=== PATIENT | female | born 1995 | race Caucasian/White ===

== ENCOUNTER → 2017-10-02 13:27 | Observation (INO) ==
[2017-10-02 12:01] LABS: Basophils % 0.3 %; Eosinophils # 0.1 K/mcL (0.0-0.6); Eosinophils % 0.8 %; Hematocrit 32.7 % (35.3-44.9); Hemoglobin 11.1 g/dL (11.5-15.4); Immature Granulocytes % 1.2 % (0-4); Lymphocytes # 1.5 K/mcL (0.6-4.6); Lymphocytes % 13.7 %; Mean Corpuscular HGB Conc 33.9 g/dL (31.6-35.5); Mean Corpuscular Hemoglobin 31.7 pg (28.0-33.3); Mean Corpuscular Volume 93.4 fL (83.0-100.0); Monocytes # 0.6 K/mcL (0.0-1.3); Monocytes % 5.7 %; Neutrophils # 8.3 K/mcL (1.6-8.9); Platelet Count 234 K/mcL (140-400); Red Cell Distribution Width 12.6 % (11.5-14.5); Segmented Neutrophils % 78.3 %
[2017-10-02 12:13] LABS: Alanine Aminotransferase 12 Units/L (0-55); Aspartate Amino Transferase 16 Units/L (5-34); BUN/Creatinine Ratio 8 (6-26); Blood Urea Nitrogen 6 mg/dL (7-20); Carbon Dioxide 21 mEq/L (19-29); Chloride 106 mEq/L (98-109); Lactate Dehydrogenase 166 Units/L (159-327); Potassium 3.7 mEq/L (3.5-4.5); Sodium 136 mEq/L (136-145); Uric Acid 5.1 mg/dL (2.6-6.0); eGFR For African Americans > 60 (> 60); eGFR For Non-African Americans > 60 (> 60)
[2017-10-02 12:39] LABS: Bilirubin,Urine Negative (Negative); Blood,Urine Trace (Negative); Clarity,Urine Cloudy (Clear); Color,Urine Yellow (Yellow); Glucose,Urine (UA) Normal (Normal); Ketones,Urine Negative (Negative); Leukocyte Esterase,Urine Trace (Negative); Nitrite,Urine Negative (Negative); PH,Urine 6.5 pH Units (5.0-8.0); Protein,Urine Negative (Neg-Trace); Specific Gravity,Urine 1.011 (1.010-1.025); Urobilinogen,Urine Normal (Normal)
[2017-10-02 12:42] LABS: Bacteria,Urine Few per hpf (None-Few); Hyaline Casts,Urine None Seen per lpf (None-Few); Squamous Epithelial Cell,Urine Many per lpf (None-Few)
[2017-10-02 13:03] LABS: RBC,Urine 0-3 per hpf (0-3)
--- NOTE | 2017-10-02 13:17 | Discharge Summary ---
Date of Encounter: 10/02/17 Time of Encounter: 13:16 - Discharge Diagnosis (1) 31 weeks gestation of Priority: Primary Status: Acute Comments: admitted for observation (2) Postural dizziness with near syncope Priority: Secondary Status: Acute Comments: Lab work WNL BPs and vital signs WNL Patient to follow up with Dr. Underwood as scheduled. (3) NST (non-stress test) reactive on surveillance Priority: Secondary Status: Acute Comments: baseline 135 bpm moderate variability +15x15 accels no decels noted. - Discharge Medications Home Medications: Multivitamin [Flintstones] 2 each PO DAILY 10/02/17 [History] Allergies/Adverse Reactions: 3 Allergy/AdvReac Type Severity Reaction Status Date / Time No Known Allergies Allergy Verified 05/30/17 13:42 Data Procedures and tests throughout hospitalization: Laboratory Tests 10/02/17 10/02/17 10/02/17 11:00 11:00 12:23 WBC 10.6 RBC 3.50 L Hgb 11.1 L Hct 32.7 L MCV 93.4 MCH 31.7 MCHC 33.9 RDW 12.6 Plt Count 234 MPV 10.0 Immature Gran % 1.2 Seg Neutrophils % 78.3 Lymphocytes % 13.7 Monocytes % 5.7 Eosinophils % 0.8 Basophils % 0.3 Neutrophils # 8.3 Lymphocytes # 1.5 Monocytes # 0.6 Eosinophils # 0.1 Basophils # 0.0 Sodium 136 Potassium 3.7 Chloride 106 Carbon Dioxide 21 BUN 6 L Creatinine 0.75 Est GFR ( Amer) > 60 Est GFR (Non-Af Amer) > 60 BUN/Creatinine Ratio 8 Uric Acid 5.1 AST 16 ALT 12 Lactate Dehydrogenase 166 Urine Color Yellow Urine Clarity Cloudy A Urine pH 6.5 Ur Specific [place] 1.011 Urine Protein Negative Urine Glucose (UA) Normal Urine Ketones Negative Urine Blood Trace H Urine Nitrite Negative Urine Bilirubin Negative Urine Urobilinogen Normal Ur Leukocyte Esterase Trace H Urine Microscopic RBC 0-3 Urine Microscopic WBC 5-15 H Ur Squamous Epith Cells Many H Urine Bacteria Few Hyaline Casts None Seen Ur Culture Indicated? YES A Labs on day of discharge: Labs from last 24 hours 10/02/17 10/02/17 10/02/17 12:23 11:00 11:00 WBC 10.6 RBC 3.50 L Hgb 11.1 L Hct 32.7 L MCV 93.4 MCH 31.7 MCHC 33.9 RDW 12.6 Plt Count 234 MPV 10.0 Immature Gran % 1.2 Seg Neutrophils % 78.3 Lymphocytes % 13.7 Monocytes % 5.7 Eosinophils % 0.8 Basophils % 0.3 Neutrophils # 8.3 Lymphocytes # 1.5 Monocytes # 0.6 Eosinophils # 0.1 Basophils # 0.0 Sodium 136 Potassium 3.7 Chloride 106 Carbon Dioxide 21 BUN 6 L Creatinine 0.75 Est GFR ( Amer) > 60 Est GFR (Non-Af Amer) > 60 BUN/Creatinine Ratio 8 Uric Acid 5.1 AST 16 ALT 12 Lactate Dehydrogenase 166 Urine Color Yellow Urine Clarity Cloudy A Urine pH 6.5 Ur Specific [place] 1.011 Urine Protein Negative Urine Glucose (UA) Normal Urine Ketones Negative Urine Blood Trace H Urine Nitrite Negative Urine Bilirubin Negative Urine Urobilinogen Normal Ur Leukocyte Esterase Trace H Urine Microscopic RBC 0-3 Urine Microscopic WBC 5-15 H Ur Squamous Epith Cells Many H Urine Bacteria Few Hyaline Casts None Seen Ur Culture Indicated? YES A Date of admission: 10/02/17 11:16 Primary care physician: PCP NONE Discharging clinician: Nany Hilliard Anticipated date of discharge: 10/02/17 - Patient Status Disposition: Home, Self-Care Condition: Good - Discharge Instructions Follow Up With: NONE,PCP [Primary Care Provider] - Erika Underwood DO [Partnered Physician] - Forms: Inpatient Work/School Release - Diet and Activity Activity: increase activity as tolerated Diet: regular diet Hospital Course [employer] Hospital course: Patient is a 21 y/o at 31 weeks gestation presents to unit for observation following a near syncopal episode while working. Patient denies decreased movement, LOF or VB. Patient Time Attestation: Total time spent providing and/or coordinating discharge services: Time Spent: Less than 30 minutes Exam - Constitutional General appearance IM: A&O X 3, pleasant, answers questions appropriately - Respiratory Respiratory exam: Present: CTAB - Cardiovascular Cardiovascular exam IM: Present: RRR, +S1, +S2 - GI/Abdominal GI/Abdominal exam IM: normal bowel sounds - Neurological Exam Neurological exam: alert, oriented X3, reflexes normal - Other Additional findings: FHR 135 bpm moderate variability +15x15 accels no decels noted. CAt. 1 tracing. - VTE Reasons for not Prescribing Prophylaxis: Treatment not Indicated - Low risk for VTE
[2017-10-02 13:34] LABS: Protein/Creatinine Ratio,Urine 0.14 mg/mg (0-0.20)
== END | disposition home or self-care (01) ==
LOC: 1NENULAB
PROVIDERS: ADMIT Obstetrics & Gynecology; ATTEND Obstetrics & Gynecology

== ENCOUNTER → 2017-10-31 09:50 | Observation (INO) ==
[2017-10-31 06:21] VITALS: BP 136/81
[2017-10-31 06:38] LABS: Bilirubin,Urine Negative (Negative); Blood,Urine Negative (Negative); Clarity,Urine Cloudy (Clear); Color,Urine Yellow (Yellow); Glucose,Urine (UA) Normal (Normal); Ketones,Urine Negative (Negative); Leukocyte Esterase,Urine Moderate (Negative); Nitrite,Urine Negative (Negative); Protein,Urine Negative (Neg-Trace); Specific Gravity,Urine 1.015 (1.010-1.025); Urobilinogen,Urine Normal (Normal)
[2017-10-31 06:40] LABS: Bacteria,Urine Many per hpf (None-Few); Hyaline Casts,Urine Few per lpf (None-Few); Squamous Epithelial Cell,Urine Many per lpf (None-Few); WBC,Urine 50-100 per hpf (0-3)
[2017-10-31 06:45] LABS: Amphetamine Screen,Urine Negative ng/mL (Cutoff=1000); Barbiturate Screen,Urine Negative ng/mL (Cutoff=200); Benzodiazepines Screen,Urine Negative ng/mL (Cutoff=200); Cannabinoid Screen,Urine Negative ng/mL (Cutoff = 50); Cocaine Screen,Urine Negative ng/mL (Cutoff= 300); Opiate Screen,Urine Negative ng/mL (Cutoff=300); Phencyclidine Screen,Urine Negative ng/mL (Cutoff=25)
[2017-10-31 06:53] LABS: RBC,Urine 0-3 per hpf (0-3)
--- NOTE | 2017-10-31 09:38 | OB/GYN Progress Note ---
Date of Encounter: 10/31/17 Time of Encounter: 09:37 - Assessment and Plan (1) 35 weeks gestation of Current Visit: Yes Status: Acute Care of Dr. Underwood (2) contractions Current Visit: Yes Status: Acute No cervical change on serial exams, pain relief obtained with administration of Nubain around 6 AM. Will discharge home with labor, and went to return to triage precautions. Patient and verbalized understanding (3) NST (non-stress test) reactive on surveillance Current Visit: No Status: Acute baseline 135 Subjective - Subjective Interval history: Presents to triage with complaint of abdominal pain and cramping around 10pm, but increased around 2am. Pt reports good movement, denies, contractions, vaginal bleeding or leaking of fluid. Antepartum ROS: movement normal, contractions, no loss of fluid, no vaginal bleeding Objective - Vital Signs Vital Signs: Vital Signs Resp BP 10/31/17 06:13 16 136/81 Intake and Output 10/30/17 10/31/17 10/31/17 23:59 07:59 15:59 Other: Weight 99.2 kg Patient Weight 10/31/17 23:59 Weight 99.2 kg - Exam FHR: auscultation normal FHR comments: Baseline 135 Abdomen: Present: normal appearance, soft, gravid Cervical dilation: Closed on serial exams per RN - Labs Labs: Abnormal lab results Urine Clarity Cloudy (Clear) A 10/31/17 06:25 Ur Leukocyte Esterase Moderate (Negative) H 10/31/17 06:25 Urine Microscopic WBC 50-100 per hpf (0-3) H 10/31/17 06:25 Ur Squamous Epith Cells Many per lpf (None-Few) H 10/31/17 06:25 Urine Bacteria Many per hpf (None-Few) H 10/31/17 06:25
[~2017-10-31 09:50] MED LIST: *HR* Nalbuphine 20 MG/ML AMPUL IVP PRN; Ringers Solution, Lactated 1,000 ML IVC SCH; Ringers Solution, Lactated 1,000 ML ONE
== END | disposition home or self-care (01) ==
LOC: 1NENULAB
PROVIDERS: ADMIT Obstetrics & Gynecology; ATTEND Obstetrics & Gynecology

== ENCOUNTER 2017-11-10 22:17 | Observation (INO) ==
--- NOTE | 2017-11-10 22:58 | OB/GYN History & Physical ---
Date of Encounter: 11/10/17 Time of Encounter: 22:54 Assessment and Plan (1) 37 weeks gestation of Current visit: Yes Status: Acute admitted for observation (2) Hematuria Current visit: Yes Status: Acute Straight cath urine specimen Qualifiers: Hematuria type: unspecified type Qualified Code(s): R31.9 - Hematuria, unspecified (3) NST (non-stress test) reactive on surveillance Current visit: No Status: Acute reactive NST. FHR 145 bpm moderate variability +15x15 accels no decels noted. History of Present Illness Chief complaint: hematuria HPI: Ms. Perez is a 22 year old female at 37w2d presents to labor and delivery with complaints of hematuria that started about 3 hours ago along with lower abdominal pain. Patient reports dysuria and urinary frequency. Patient reports +FM. Patient is unsure of contractions. Patient states she was closed last week. Patient reports history of kidney stones in past but not during . Patient denies any back pain. Past Med Surg Social Fam HX - Past Medical History Source: patient Medical history: no medical history, kidney stones Psychiatric history: anxiety - Past Surgical History Surgical History: other - Social History Smoking Status: Former smoker Smokeless Tobacco Status: No Alcohol use: none Drug use: none - Family History Mother Living Status: Still Living Hx Family Cardiac Disorders: No Hx Family Respiratory Disorders: No Hx Family Cancer: No Hx Family GI Disorders: No Hx Family Endocrine Disorder: No Hx Family Neuromuscular Disorders: No Hx Family Neurologic Disorders: No Hx Family HEENT Disorders: No Hx Family Autoimmune Disorders: No Obstetrical History - Pregnancies : 1 Para: 0 Term: 0 : 0 Ab's: 0 Livin Medications and Allergies Multivitamin [Flintstones] 2 each PO DAILY 10/02/17 [History] 3 Allergy/AdvReac Type Severity Reaction Status Date / Time No Known Allergies Allergy Verified 05/30/17 13:42 Review of System OB - Constitutional Constitutional ROS IM: no chills, no fever(s), no headache(s) - Cardiovascular Cardiovascular: no chest pain, no edema, no syncope - Respiratory Respiratory: no cough - Gastrointestinal Gastrointestinal: abdominal pain (lower abdominal pain), cramping, no diarrhea, no heartburn, no nausea, no vomiting - Genitourinary Genitourinary: dysuria, urinary frequency, no abnormal vaginal bleeding, no flank pain, no urinary urgency, no vaginal discharge, no vaginal odor Exam - Constitutional Constitutional: well developed, well nourished, no acute distress, average body habitus - HEENT HEENT: Normocephaly, Mucus Membranes Moist - Neck Neck exam: full ROM, supple - Lungs Respiratory exam: CTAB - Cardiovascular Cardiovascular exam: RRR, +S1, +S2 - Abdomen Abdomen: Present: bowel sounds normal, gravid, non tender - Extremities Extremities exam: full ROM, normal capillary refill, normal inspection Deep Tendon Reflex Grade: 2+ Normal - Vagina Vagina: Present: normal moisture - Cervix Dilation: 0 Station: -2 - Uterus Uterus exam: Present: normal size, normal contour - Anus/Rectum Anus/Rectum: Present: normal perianal skin - Comments Comments: FHR 145 bpm moderate variability +15x15 accels no decels noted. Irregular contractions with uterine irritability. CAt. 1 tracing. Results All other labs normal. - VTE Reasons for not Prescribing Prophylaxis: Treatment not Indicated - Low risk for VTE
[2017-11-10] MEDS ORDERED: Ringers Solution, Lactated 1,000 ML IVC SCH (23:00)
[2017-11-10] MEDS ORDERED: cefTRIAXone 2,000 MG in Water for inj. (sterile) 20 ML 20 ML IVP ONE (23:00)
[2017-11-10 23:07] LABS: Bilirubin,Urine Negative (Negative); Blood,Urine Large (Negative); Clarity,Urine Turbid (Clear); Color,Urine Yellow (Yellow); Glucose,Urine (UA) Normal (Normal); Ketones,Urine Negative (Negative); Leukocyte Esterase,Urine Large (Negative); Nitrite,Urine Negative (Negative); Protein,Urine 100 mg/dL (Neg-Trace); Specific Gravity,Urine 1.014 (1.010-1.025); Urobilinogen,Urine Normal (Normal)
[2017-11-10 23:08] LABS: Hyaline Casts,Urine None Seen per lpf (None-Few); RBC,Urine 30-50 per hpf (0-3); Squamous Epithelial Cell,Urine Many per lpf (None-Few); WBC,Urine TNTC per hpf (0-3)
[2017-11-10 23:13] LABS: Amphetamine Screen,Urine Negative ng/mL (Cutoff=1000); Barbiturate Screen,Urine Negative ng/mL (Cutoff=200); Benzodiazepines Screen,Urine Negative ng/mL (Cutoff=200); Cannabinoid Screen,Urine Negative ng/mL (Cutoff = 50); Cocaine Screen,Urine Negative ng/mL (Cutoff= 300); Opiate Screen,Urine Negative ng/mL (Cutoff=300); Phencyclidine Screen,Urine Negative ng/mL (Cutoff=25)
[2017-11-10 23:17] LABS: Bacteria,Urine Moderate per hpf (None-Few)
[2017-11-10 23:21] LABS: Basophils % 0.3 %; Eosinophils # 0.1 K/mcL (0.0-0.6); Eosinophils % 0.6 %; Hematocrit 32.8 % (35.3-44.9); Hemoglobin 11.3 g/dL (11.5-15.4); Immature Granulocytes % 1.1 % (0-4); Lymphocytes # 1.7 K/mcL (0.6-4.6); Lymphocytes % 15.1 %; Mean Corpuscular HGB Conc 34.5 g/dL (31.6-35.5); Mean Corpuscular Hemoglobin 31.7 pg (28.0-33.3); Mean Corpuscular Volume 92.1 fL (83.0-100.0); Mean Platelet Volume 10.3 fL (9.4-12.4); Monocytes # 0.9 K/mcL (0.0-1.3); Monocytes % 8.2 %; Neutrophils # 8.4 K/mcL (1.6-8.9); Platelet Count 239 K/mcL (140-400); Red Blood Count 3.56 M/mcL (3.82-4.97); Red Cell Distribution Width 13.1 % (11.5-14.5); Segmented Neutrophils % 74.7 %
[2017-11-10] MEDS ORDERED: *HR* Nalbuphine 20 MG/ML AMPUL IVP ONE (23:35)
--- NOTE | 2017-11-11 00:44 | Discharge Summary ---
Date of Encounter: 11/11/17 Time of Encounter: 00:45 - Discharge Diagnosis (1) 37 weeks gestation of Priority: Primary Status: Acute Comments: admitted for observation (2) Hematuria Priority: Secondary Status: Acute Comments: Rocephin 2 grams IV Will discharge home with keflex Qualifiers: Hematuria type: unspecified type Qualified Code(s): R31.9 - Hematuria, unspecified (3) NST (non-stress test) reactive on surveillance Priority: Secondary Status: Acute Comments: FHR 135 bpm moderate variability +15x15 accels no decels noted. - Discharge Medications Prescriptions: cephALEXin [Keflex] 1,000 mg PO BID 7 Days #28 capsule Home Medications: Multivitamin [Flintstones] 2 each PO DAILY 10/02/17 [History] cephALEXin [Keflex] 1,000 mg PO BID 7 Days #28 capsule 11/11/17 [Rx] Allergies/Adverse Reactions: 3 Allergy/AdvReac Type Severity Reaction Status Date / Time No Known Allergies Allergy Verified 11/11/17 00:32 Data Procedures and tests throughout hospitalization: Laboratory Tests 11/10/17 11/10/17 11/10/17 22:45 22:45 22:45 WBC 11.3 H RBC 3.56 L Hgb 11.3 L Hct 32.8 L MCV 92.1 MCH 31.7 MCHC 34.5 RDW 13.1 Plt Count 239 MPV 10.3 Immature Gran % 1.1 Seg Neutrophils % 74.7 Lymphocytes % 15.1 Monocytes % 8.2 Eosinophils % 0.6 Basophils % 0.3 Neutrophils # 8.4 Lymphocytes # 1.7 Monocytes # 0.9 Eosinophils # 0.1 Basophils # 0.0 Urine Color Yellow Urine Clarity Turbid A Urine pH 7.0 Ur Specific [place] 1.014 Urine Protein 100 H Urine Glucose (UA) Normal Urine Ketones Negative Urine Blood Large H Urine Nitrite Negative Urine Bilirubin Negative Urine Urobilinogen Normal Ur Leukocyte Esterase Large H Urine Microscopic RBC 30-50 H Urine Microscopic WBC TNTC H Ur Squamous Epith Cells Many H Urine Bacteria Moderate H Hyaline Casts None Seen Ur Culture Indicated? NO. Urine Opiates Screen Negative Ur Barbiturates Screen Negative Ur Phencyclidine Scrn Negative Ur Amphetamines Screen Negative U Benzodiazepines Scrn Negative Urine Cocaine Screen Negative U Marijuana (THC) Screen Negative Labs on day of discharge: Labs from last 24 hours 11/10/17 11/10/17 11/10/17 22:45 22:45 22:45 WBC 11.3 H RBC 3.56 L Hgb 11.3 L Hct 32.8 L MCV 92.1 MCH 31.7 MCHC 34.5 RDW 13.1 Plt Count 239 MPV 10.3 Immature Gran % 1.1 Seg Neutrophils % 74.7 Lymphocytes % 15.1 Monocytes % 8.2 Eosinophils % 0.6 Basophils % 0.3 Neutrophils # 8.4 Lymphocytes # 1.7 Monocytes # 0.9 Eosinophils # 0.1 Basophils # 0.0 Urine Color Yellow Urine Clarity Turbid A Urine pH 7.0 Ur Specific [place] 1.014 Urine Protein 100 H Urine Glucose (UA) Normal Urine Ketones Negative Urine Blood Large H Urine Nitrite Negative Urine Bilirubin Negative Urine Urobilinogen Normal Ur Leukocyte Esterase Large H Urine Microscopic RBC 30-50 H Urine Microscopic WBC TNTC H Ur Squamous Epith Cells Many H Urine Bacteria Moderate H Hyaline Casts None Seen Ur Culture Indicated? NO. Urine Opiates Screen Negative Ur Barbiturates Screen Negative Ur Phencyclidine Scrn Negative Ur Amphetamines Screen Negative U Benzodiazepines Scrn Negative Urine Cocaine Screen Negative U Marijuana (THC) Screen Negative Date of admission: 11/10/17 22:17 Discharging clinician: Nany Hilliard Anticipated date of discharge: 11/11/17 - Patient Status Disposition: Home, Self-Care Condition: Good Functional capacity at discharge: independent ambulation - Discharge Instructions Follow Up With: Erika Underwood DO [Partnered Physician] - - Diet and Activity Activity: increase activity as tolerated Diet: regular diet Hospital Course [employer] 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 ) - VTE Reasons for not Prescribing Prophylaxis: Treatment not Indicated - Low risk for VTE
== END 2017-11-11 02:30 | disposition home or self-care (01) ==
LOC: 1NENULAB
PROVIDERS: ADMIT Student in an Organized Health Care Education/Training Program; ATTEND Student in an Organized Health Care Education/Training Program

== ENCOUNTER 2017-11-12 22:10 | Observation (INO) ==
[2017-11-12 22:44] LABS: Bilirubin,Urine Negative (Negative); Blood,Urine Large (Negative); Clarity,Urine Cloudy (Clear); Color,Urine Yellow (Yellow); Glucose,Urine (UA) Normal (Normal); Ketones,Urine Negative (Negative); Leukocyte Esterase,Urine Moderate (Negative); Nitrite,Urine Negative (Negative); Protein,Urine >=300 mg/dL (Neg-Trace); Specific Gravity,Urine 1.019 (1.010-1.025); Urobilinogen,Urine Normal (Normal)
[2017-11-12 22:45] LABS: Bacteria,Urine None Seen per hpf (None-Few); Hyaline Casts,Urine None Seen per lpf (None-Few); RBC,Urine TNTC per hpf (0-3); Squamous Epithelial Cell,Urine Many per lpf (None-Few); WBC,Urine TNTC per hpf (0-3)
[2017-11-12 22:47] LABS: Amphetamine Screen,Urine Negative ng/mL (Cutoff=1000); Barbiturate Screen,Urine Negative ng/mL (Cutoff=200); Benzodiazepines Screen,Urine Negative ng/mL (Cutoff=200); Cannabinoid Screen,Urine Negative ng/mL (Cutoff = 50); Cocaine Screen,Urine Negative ng/mL (Cutoff= 300); Opiate Screen,Urine Negative ng/mL (Cutoff=300); Phencyclidine Screen,Urine Negative ng/mL (Cutoff=25)
[2017-11-12] MEDS ORDERED: cefTRIAXone 2,000 MG in Water for inj. (sterile) 20 ML 20 ML IVP ONE (22:58)
[2017-11-12] MEDS ORDERED: *HR* Nalbuphine 20 MG/ML AMPUL IVP ONE (23:59)
[2017-11-13] MEDS: *HR* Morphine 2 MG/ML SYRINGE IVP PRN ×2 (04:31→09:47)
--- NOTE | 2017-11-13 06:33 | OB/GYN Progress Note ---
Date of Encounter: 11/13/17 Time of Encounter: 06:35 - Assessment and Plan (1) 37 weeks gestation of Current Visit: No Status: Acute (2) Hematuria Current Visit: No Status: Acute Plan: - UA shows moderate leuk esterases, large quantities of blood. - given Ceftriaxone - UA sent for culture - US of kidneys pending Qualifiers: Hematuria type: unspecified type Qualified Code(s): R31.9 - Hematuria, unspecified (3) NST (non-stress test) reactive on surveillance Current Visit: No Status: Acute FHR baseline = 135, accelerations present, reassuring. Subjective - Subjective Principal diagnosis: blood in urine and abdominal pain Interval history: Patient is a 22 y/o female at 37 +5 weeks presented to L&D with complaints of lwoer abdominal pain and blood in her urine for 1 week. Patient was previously here on 11/11/17 and was found to have a UTI. Patient was given Rocephin and Keflex on Sunday. Over the last couple of days pain has worsened and increase frequency of urination has worsened. Patient has also developed an itchy rash on her upper abdomen and some loose stools. She admits to some bloody discharge today with small clots. Patient denies changes in vision, GIRON, fever. Reports active moveemnt, no leakage of fluid. Denies contractions. Antepartum ROS: vaginal bleeding, movement normal, no loss of fluid, no contractions Objective - Vital Signs Vital Signs: Intake and Output 11/12/17 11/12/17 11/13/17 15:59 23:59 07:59 Other: Weight 99.518 kg - Exam FHR: category 1 FHR comments: FHR baseline= 140, Auscultation: bilateral: normal Abdomen: Present: soft, tenderness (suprapublicaly), other (no CVA tenderness ) Uterus: Present: normal, firm Cervical dilation: 0 cm Cervix effacement: thick station: high Comments: per nursing - Labs Labs: Abnormal lab results Urine Clarity Cloudy (Clear) A 11/12/17 22:30 Urine Protein >=300 mg/dL (Neg-Trace) H 11/12/17 22:30 Urine Blood Large (Negative) H 11/12/17 22:30 Ur Leukocyte Esterase Moderate (Negative) H 11/12/17 22:30 Urine Microscopic RBC TNTC per hpf (0-3) H 11/12/17 22:30 Urine Microscopic WBC TNTC per hpf (0-3) H 11/12/17 22:30 Ur Squamous Epith Cells Many per lpf (None-Few) H 11/12/17 22:30
[2017-11-13] MEDS ORDERED: Ondansetron 4 MG/2 ML VIAL IVP PRN ×2 (06:42→11:05)
[2017-11-13 10:54] LABS: Basophils % 0.3 %; Eosinophils # 0.1 K/mcL (0.0-0.6); Eosinophils % 0.8 %; Hematocrit 31.5 % (35.3-44.9); Hemoglobin 10.6 g/dL (11.5-15.4); Immature Granulocytes % 0.8 % (0-4); Lymphocytes # 1.8 K/mcL (0.6-4.6); Lymphocytes % 18.9 %; Mean Corpuscular HGB Conc 33.7 g/dL (31.6-35.5); Mean Corpuscular Hemoglobin 30.7 pg (28.0-33.3); Mean Corpuscular Volume 91.3 fL (83.0-100.0); Mean Platelet Volume 10.4 fL (9.4-12.4); Monocytes # 0.6 K/mcL (0.0-1.3); Monocytes % 6.1 %; Neutrophils # 7.1 K/mcL (1.6-8.9); Platelet Count 218 K/mcL (140-400); Red Blood Count 3.45 M/mcL (3.82-4.97); Red Cell Distribution Width 13.3 % (11.5-14.5); Segmented Neutrophils % 73.1 %
[2017-11-13] MEDS ORDERED: *HR* Morphine 2 MG/ML SYRINGE IVP PRN (11:05)
--- NOTE | 2017-11-13 11:12 | OB/GYN History & Physical ---
Date of Encounter: 11/13/17 Time of Encounter: 06:30 Assessment and Plan (1) 37 weeks gestation of Current visit: No Status: Acute (2) Hematuria Current visit: No Status: Acute Plan: - UA shows moderate leuk esterases, large quantities of blood. - given Ceftriaxone - UA sent for culture - US of kidneys showed mild right hydronephrosis and bilatercal calculi with largest 3-4mm - admit to observation for monitoring and pain control Qualifiers: Hematuria type: unspecified type Qualified Code(s): R31.9 - Hematuria, unspecified (3) NST (non-stress test) reactive on surveillance Current visit: No Status: Acute FHR baseline = 135, accelerations present, reassuring. History of Present Illness Chief complaint: blood in urine and abdominal pain HPI: Ms. Perez is a 22 y/o female at 37 +5 weeks presented to L&D with complaints of lwoer abdominal pain and blood in her urine for 1 week. Patient was previously here on 11/11/17 and was found to have a UTI. Patient was given Rocephin and Keflex on Sunday. Over the last couple of days pain has worsened and increase frequency of urination has worsened. Patient has also developed an itchy rash on her upper abdomen and some loose stools. She admits to some bloody discharge today with small clots. Patient denies changes in vision, GIRON, fever. Reports active moveemnt, no leakage of fluid. Denies contractions. Follows with Dr. Underwood. PNL: A+, RPR neg, RI< HBsAg neg, GBS neg Past Med Surg Social Fam HX - Past Medical History Source: patient, old records reviewed Medical history: kidney stones Psychiatric history: anxiety - Past Surgical History Surgical History: other - Social History Smoking Status: Former smoker Smokeless Tobacco Status: No Alcohol use: none Drug use: none - Family History Mother Living Status: Still Living Hx Family Cardiac Disorders: No Hx Family Respiratory Disorders: No Hx Family Cancer: No Hx Family GI Disorders: No Hx Family Genitourinary Disorders: Yes Hx Family Endocrine Disorder: No Hx Family Neuromuscular Disorders: No Hx Family Neurologic Disorders: No Hx Family HEENT Disorders: No Hx Family Autoimmune Disorders: No Obstetrical History - Pregnancies : 1 Para: 0 Term: 0 : 0 Ab's: 0 Livin Medications and Allergies Multivitamin [Flintstones] 2 each PO DAILY 10/02/17 [History] cephALEXin [Keflex] 1,000 mg PO BID 7 Days #28 capsule 11/11/17 [Rx] 3 Allergy/AdvReac Type Severity Reaction Status Date / Time No Known Allergies Allergy Verified 11/12/17 22:27 Review of System OB All systems PM: reviewed and no additional remarkable complaints except as stated Exam - Constitutional Constitutional: well developed, well nourished, no acute distress, average body habitus - HEENT HEENT: Normocephaly, Mucus Membranes Moist - Neck Neck exam: full ROM - Lungs Respiratory exam: CTAB - Cardiovascular Cardiovascular exam: RRR - Abdomen Abdomen: Present: non tender - Extremities Extremities exam: normal inspection - Cervix Dilation: 0 Effacement: 100 Station: -4 - Uterus Uterus exam: Present: normal size Results Result Diagrams: 11/13/17 10:40 Abnormal lab results RBC 3.45 M/mcL (3.82-4.97) L 11/13/17 10:40 Hgb 10.6 g/dL (11.5-15.4) L 11/13/17 10:40 Hct 31.5 % (35.3-44.9) L 11/13/17 10:40 Urine Clarity Cloudy (Clear) A 11/12/17 22:30 Urine Protein >=300 mg/dL (Neg-Trace) H 11/12/17 22:30 Urine Blood Large (Negative) H 11/12/17 22:30 Ur Leukocyte Esterase Moderate (Negative) H 11/12/17 22:30 Urine Microscopic RBC TNTC per hpf (0-3) H 11/12/17 22:30 Urine Microscopic WBC TNTC per hpf (0-3) H 11/12/17 22:30 Ur Squamous Epith Cells Many per lpf (None-Few) H 11/12/17 22:30 All other labs normal. - VTE Reasons for not Prescribing Prophylaxis: Treatment not Indicated - Low risk for VTE - Attending Attestation I examined this patient and my medical decision-making was reviewed with the Resident Physician. I agree with the documented findings, disposition and treatment plan as described. Parish Hearn CNM
--- NOTE | 2017-11-13 12:06 | Event Note ---
Date of Encounter: 11/13/17 Time of Encounter: 11:30 Discussed patient's case with Dr Galarza, urology. Dr. Galarza has no additional recommendations at this time. He would like an update if patient's condition deteriorates or does not improve with conservative care.
[2017-11-13] MEDS: Ringers Solution, Lactated 1,000 ML IVC SCH ×2 (12:33→20:05)
[2017-11-13] MEDS ORDERED: *HR* Nalbuphine 20 MG/ML AMPUL IVP PRN (15:10)
[2017-11-13] MEDS: *HR* OxyCODONE/APAP 5/325 TABLET PO PRN ×2 (17:31→23:07)
[2017-11-14] MEDS: Ringers Solution, Lactated 1,000 ML IVC SCH (04:16)
[2017-11-14] MEDS: *HR* OxyCODONE/APAP 5/325 TABLET PO PRN (04:32)
[2017-11-14 08:14] VITALS: BP 109/64
--- NOTE | 2017-11-14 09:26 | Discharge Summary ---
Date of Encounter: 11/14/17 Time of Encounter: 09:28 - Discharge Diagnosis (1) Maternal renal lithiasis, current Priority: Primary Status: Acute Comments: Pt reports pain well controlled with Percocet this am. Plan for discharge home with flexeril for pain. Pt will continue to take Tylenol as needed as well. Will rx a few tablets of Percocet for severe pain. Pt to be discharged this am to go to her appointment with Dr. Underwood. Qualifiers: Trimester: third trimester Qualified Code(s): O26.833 - related renal disease, third trimester; N20.0 - Calculus of kidney; N20.0 - Calculus of kidney (2) 37 weeks gestation of Priority: Secondary Status: Acute (3) NST (non-stress test) reactive on surveillance Priority: Secondary Status: Acute - Discharge Medications Prescriptions: OxyCODONE/APAP 5/325 [Percocet 5/325 MG] 1 each PO Q6HR PRN #5 tablet PRN Reason: Pain Home Medications: Multivitamin [Flintstones] 2 each PO DAILY 10/02/17 [History] cephALEXin [Keflex] 1,000 mg PO BID 7 Days #28 capsule 11/11/17 [Rx] Cyclobenzaprine [Flexeril] 10 mg PO TID PRN #15 tablet 11/14/17 [Rx] OxyCODONE/APAP 5/325 [Percocet 5/325 MG] 1 each PO Q6HR PRN #5 tablet 11/14/17 [ Rx] Allergies/Adverse Reactions: 3 Allergy/AdvReac Type Severity Reaction Status Date / Time No Known Allergies Allergy Verified 11/12/17 22:27 Data Procedures and tests throughout hospitalization: Laboratory Tests 11/12/17 11/12/17 11/13/17 22:30 22:30 10:40 WBC 9.7 RBC 3.45 L Hgb 10.6 L Hct 31.5 L MCV 91.3 MCH 30.7 MCHC 33.7 RDW 13.3 Plt Count 218 MPV 10.4 Immature Gran % 0.8 Seg Neutrophils % 73.1 Lymphocytes % 18.9 Monocytes % 6.1 Eosinophils % 0.8 Basophils % 0.3 Neutrophils # 7.1 Lymphocytes # 1.8 Monocytes # 0.6 Eosinophils # 0.1 Basophils # 0.0 Urine Color Yellow Urine Clarity Cloudy A Urine pH 7.0 Ur Specific Bricelyn 1.019 Urine Protein >=300 H Urine Glucose (UA) Normal Urine Ketones Negative Urine Blood Large H Urine Nitrite Negative Urine Bilirubin Negative Urine Urobilinogen Normal Ur Leukocyte Esterase Moderate H Urine Microscopic RBC TNTC H Urine Microscopic WBC TNTC H Ur Squamous Epith Cells Many H Urine Bacteria None Seen Hyaline Casts None Seen Ur Culture Indicated? NO. Urine Opiates Screen Negative Ur Barbiturates Screen Negative Ur Phencyclidine Scrn Negative Ur Amphetamines Screen Negative U Benzodiazepines Scrn Negative Urine Cocaine Screen Negative U Marijuana (THC) Screen Negative Labs on day of discharge: Labs from last 24 hours 11/13/17 10:40 WBC 9.7 RBC 3.45 L Hgb 10.6 L Hct 31.5 L MCV 91.3 MCH 30.7 MCHC 33.7 RDW 13.3 Plt Count 218 MPV 10.4 Immature Gran % 0.8 Seg Neutrophils % 73.1 Lymphocytes % 18.9 Monocytes % 6.1 Eosinophils % 0.8 Basophils % 0.3 Neutrophils # 7.1 Lymphocytes # 1.8 Monocytes # 0.6 Eosinophils # 0.1 Basophils # 0.0 - Impressions ITS Impressions Retroperitoneum Ultrasound 11/13/17 09:00 IMPRESSION: 1. Mild right hydronephrosis. No left hydronephrosis. 2. Probable bilateral nonobstructing renal calculi, the largest of which measures up to 3-4 mm. 3. No significant postvoid residual. However, there is echogenic debris within the bladder some of which is nonmobile and could reflect blood products given history. D/ / 11/13/2017 10:19:16 Maria Teresa Martin MD / [facility] Interpreting Provider: Maria Teresa Martin MD Date of admission: 11/12/17 22:10 Primary care physician: PCP NONE Discharging clinician: Adilia Lee Anticipated date of discharge: 11/14/17 - Patient Status Disposition: Home, Self-Care Condition: Good Functional capacity at discharge: independent ambulation Overall status at discharge: patient is progressing back to baseline - Discharge Instructions Follow Up With: NONE,PCP [Primary Care Provider] - Erika Underwood DO [Partnered Physician] - - Diet and Activity Activity: increase activity as tolerated Diet: regular diet Hospital Course [employer]LE[employer]TERN[employer] Reason for admission: other (renal lithiasis) Discharge diagnosis: other (renal lithiasis) Hospital course: 22 y/o female at 37 +5 weeks presented to L&D with complaints of lower abdominal pain and blood in her urine for 1 week. Patient was previously here on 11/11/17 and was found to have a UTI. Patient was given Rocephin and Keflex on Sunday. Over the last couple of days pain has worsened and increase frequency of urination has worsened. Patient has also developed an itchy rash on her upper abdomen and some loose stools. She admits to some bloody discharge today with small clots when she voids. Patient denies changes in vision, GIRON, fever. Reports active movement, no leakage of fluid. Denies contractions. She was admitted for observation due to severe pain after stones were noted on US with the largest measuring 3-4mm. Pain well controlled with Percocet. She will be discharged home with flexeril and a few tablets of percocet. Follow-up immediately following discharge with Dr. Underwood. Time Attestation: Total time spent providing and/or coordinating discharge services: Exam - Constitutional Vitals: Temp Pulse Resp BP Pulse Ox 97.8 F 60 16 109/64 97 11/14/17 07:40 11/14/17 07:40 11/14/17 07:40 11/14/17 07:40 11/14/17 07:40 General appearance IM: A&O X 3, pleasant, no acute distress - Respiratory Respiratory exam: Present: CTAB - Cardiovascular Cardiovascular exam IM: Present: RRR, +S1, +S2 - GI/Abdominal GI/Abdominal exam IM: soft - Rectal Rectal exam: deferred - Additional comments: Uterus soft with normal tone, contractions every 3-5 minutes on toco - Extremities Exam Extremities exam IM: Present: normal inspection - Neurological Exam Neurological exam: normal gait, oriented X3 - Other Additional findings: FHT 125BPM with reactive NST - VTE Reasons for not Prescribing Prophylaxis: Treatment not Indicated - Low risk for VTE
[2017-11-14] MEDS ORDERED: *HR* OxyCODONE/APAP 5/325 TABLET PO ONE (09:34)
== END 2017-11-14 10:22 | disposition home or self-care (01) ==
LOC: 1NENULAB → 1NENUOBS 11-13 10:57
PROVIDERS: ADMIT Obstetrics & Gynecology; ATTEND Obstetrics & Gynecology

== ENCOUNTER 2017-11-28 12:01 | Inpatient (IN) ==
--- NOTE | 2017-11-28 12:24 | OB/GYN History & Physical ---
Addendum entered and electronically signed by Jeanie Escobar DO 08:37: This is a duplicate H&P please delete from the patient's chart Original Note: Date of Encounter: 12/20/17 Past Med Surg Social Fam HX - Family History Mother Living Status: Still Living Hx Family Cardiac Disorders: No Hx Family Respiratory Disorders: No Hx Family Cancer: No Hx Family GI Disorders: No Hx Family Endocrine Disorder: No Hx Family Neuromuscular Disorders: No Hx Family Neurologic Disorders: No Hx Family HEENT Disorders: No Hx Family Autoimmune Disorders: No Medications and Allergies Multivitamin [Flintstones] 4 each PO DAILY 10/02/17 [History] Acetaminophen [Tylenol] 650 mg PO Q6HR PRN tablet 12/01/17 [Rx] Benzocaine/Menthol [place] [Dermoplast [place]] 1 appl TP QID PRN aerosol 12/01/17 [Rx] Breast Pump [BREAST PUMP] 1 each .ROUTE AD #1 each 12/01/17 [Rx] Docusate [Colace] 100 mg PO BID #60 capsule 12/01/17 [Rx] Ferrous Sulfate 325 mg PO BIDWM #60 tablet 12/01/17 [Rx] Ibuprofen [Motrin] 600 mg PO Q6HR PRN #60 tablet 12/01/17 [Rx] Lanolin [Lansinoh] 1 appl TP QID PRN oint...g. 12/01/17 [Rx] Vit/FA 1 each PO DAILY tablet 12/01/17 [Rx] 3 Allergy/AdvReac Type Severity Reaction Status Date / Time No Known Allergies Allergy Verified 11/12/17 22:27 Results Result Diagrams: 12/01/17 07:14 11/29/17 06:04 All other labs normal. - Attending Attestation This is a duplicate H&P and needs to be dilated from the patient's chart.
[2017-11-28] MEDS ORDERED: Naloxone 0.4 MG/ML INJ IVP PRN (12:42)
[2017-11-28] MEDS ORDERED: Famotidine 20 MG/2 ML VIAL IVP PRN (12:42)
[2017-11-28] MEDS ORDERED: Ondansetron 4 MG/2 ML VIAL IVP PRN (12:42)
[2017-11-28 13:08] LABS: Basophils # 0.1 K/mcL (0.0-0.2); Basophils % 0.4 %; Eosinophils # 0.1 K/mcL (0.0-0.6); Eosinophils % 0.4 %; Hematocrit 34.8 % (35.3-44.9); Hemoglobin 11.7 g/dL (11.5-15.4); Lymphocytes # 1.8 K/mcL (0.6-4.6); Lymphocytes % 12.1 %; Mean Corpuscular HGB Conc 33.6 g/dL (31.6-35.5); Mean Corpuscular Hemoglobin 30.5 pg (28.0-33.3); Mean Corpuscular Volume 90.6 fL (83.0-100.0); Mean Platelet Volume 10.3 fL (9.4-12.4); Monocytes # 0.8 K/mcL (0.0-1.3); Monocytes % 5.7 %; Neutrophils # 11.7 K/mcL (1.6-8.9); Platelet Count 263 K/mcL (140-400); Red Blood Count 3.84 M/mcL (3.82-4.97); Red Cell Distribution Width 13.2 % (11.5-14.5); Segmented Neutrophils % 80.4 %
[2017-11-28 13:22] LABS: Alanine Aminotransferase 9 Units/L (7-52); Aspartate Amino Transferase 15 Units/L (13-39); BUN/Creatinine Ratio 9 (6-26); Blood Urea Nitrogen 7 mg/dL (6-20); Lactate Dehydrogenase 129 Units/L (140-271); Uric Acid 6.7 mg/dL (2.3-7.6); eGFR For African Americans > 60 (> 60); eGFR For Non-African Americans > 60 (> 60)
[2017-11-28] MEDS ORDERED: Ringers Solution, Lactated 1,000 ML IVC SCH (13:45)
--- NOTE | 2017-11-28 14:32 | OB/GYN History & Physical ---
Date of Encounter: 11/28/17 Time of Encounter: 13:00 Assessment and Plan (1) 39 weeks gestation of Current visit: Yes Status: Acute (2) induced hypertension Current visit: Yes Status: Acute Admit to L&D for induction of labor d/t PIH PIH labs Cervidil Pain control Anesthesia consult for potential epidural GBS - Anticipate vaginal delivery Discussed potential for long induction time Plan of care per consult with Dr. Wang Qualifiers: Trimester: third trimester Qualified Code(s): O13.3 - Gestational [ -induced] hypertension without significant proteinuria, third trimester History of Present Illness Chief complaint: Slight headache pre-eclampsia vs. PIH HPI: Ms. Perez is a 22 year old who presents to L&D for r/o pre-eclampsia vs. PIH. has been uncomplicated to this point. She was noted to have facial edema in the office earlier today and had mildly elevated blood pressures. VE in office was FT/thick/-4. She is feeling ok on admission to unit. Reports frequent urination s/t chronic kidney stones during . Denies LOF, VB, discharge, contractions. Initial labs are unremarkable - still awaiting urine P/C ratio. Past Med Surg Social Fam HX - Past Medical History Medical history: kidney stones Psychiatric history: anxiety - Past Surgical History Surgical History: no surgical history, other - Social History Smoking Status: Never smoker Smokeless Tobacco Status: No Alcohol use: none Drug use: none - Family History Mother Adopted: No Living Status: Still Living Hx Family Cardiac Disorders: No Hx Family Respiratory Disorders: No Hx Family Cancer: No Hx Family GI Disorders: No Hx Family Genitourinary Disorders: No Hx Family Endocrine Disorder: No Hx Family Musculoskeletal Disorders: No Hx Family Neuromuscular Disorders: No Hx Family Neurologic Disorders: No Hx Family HEENT Disorders: No Hx Family Autoimmune Disorders: No Hx Family Reproductive Disorders: No Hx Family Psychosocial Disorders: No Hx Family Medical Disorders: No Obstetrical History - Pregnancies : 1 Para: 0 Term: 0 : 0 Ab's: 0 Livin Medications and Allergies Multivitamin [Flintstones] 4 each PO DAILY 10/02/17 [History] 3 Allergy/AdvReac Type Severity Reaction Status Date / Time No Known Allergies Allergy Verified 11/12/17 22:27 Review of System OB All systems PM: reviewed and no additional remarkable complaints except as stated - Constitutional Constitutional ROS IM: as per HPI, headache(s) Exam - Constitutional Constitutional: well developed, well nourished, average body habitus, mild distress - HEENT HEENT: PERRL, Mucus Membranes Moist - Neck Neck exam: full ROM - Lungs Respiratory exam: CTAB - Cardiovascular Cardiovascular exam: RRR, +S1, +S2 - Abdomen Abdomen: Present: bowel sounds normal, gravid, non tender - Extremities Extremities exam: normal capillary refill, normal inspection, pedal edema Deep Tendon Reflex Grade: 2+ Normal Results Result Diagrams: 11/28/17 12:55 11/28/17 12:55 Abnormal lab results WBC 14.6 K/mcL (4.3-11.1) H 11/28/17 12:55 Hct 34.8 % (35.3-44.9) L 11/28/17 12:55 Neutrophils # 11.7 K/mcL (1.6-8.9) H 11/28/17 12:55 Lactate Dehydrogenase 129 Units/L (140-271) L 11/28/17 12:55 All other labs normal. - VTE Reasons for not Prescribing Prophylaxis: Treatment not Indicated - Low risk for VTE
[2017-11-28 14:33] LABS: Creatinine,Urine 89 mg/dL; Protein/Creatinine Ratio,Urine 0.15 mg/mg (0.00-0.20)
[2017-11-28 14:48] LABS: Amphetamine Screen,Urine Negative ng/mL (Cutoff=1000); Barbiturate Screen,Urine Negative ng/mL (Cutoff=200); Benzodiazepines Screen,Urine Negative ng/mL (Cutoff=200); Cannabinoid Screen,Urine Negative ng/mL (Cutoff = 50); Cocaine Screen,Urine Negative ng/mL (Cutoff= 300); Opiate Screen,Urine Negative ng/mL (Cutoff=300); Phencyclidine Screen,Urine Negative ng/mL (Cutoff=25)
--- NOTE | 2017-11-28 14:49 | Anesthesia Evaluation PreOp ---
Date of Encounter: 11/28/17 Time of Encounter: 14:47 - Past History Planned Operation: elissa Cardiac History: Denies any Significant Hx Pulmonary History: Denies Any Significant HX TREE EXPERT History: Denies Any Significant HX Other Medical History: Denies Any Significant HX Anesthesia History: No Prior Anesthetic Complications (no family history of anesthetic reactions) : Yes (, 39 plus 6) Alcohol Use: none Drug use: none Medications and Allergies Multivitamin [Flintstones] 4 each PO DAILY 10/02/17 [History] 3 Allergy/AdvReac Type Severity Reaction Status Date / Time No Known Allergies Allergy Verified 11/12/17 22:27 - Meds/Allergy Pre-op Review Medications Reviewed: Yes Allergies Reviewed: Yes Beta Blockers on Current Med List: No Anesthesia Results - Labs 11/28/17 12:55 11/28/17 12:55 Anesthesia Exam O2 Sat Height 1.75 m Weight 98.3 kg 134/87 hr 109 Height: 69 Weight: 98 - HEENT Pupil (Motor): Pupils equal Mallampati: II Teeth: Normal Oral Opening: Greater than 3 - TREE EXPERT LOC: Oriented TREE EXPERT Motor: Normal RUE, Normal LUE, Normal RLE, Normal LLE, Normal Face TREE EXPERT Sensory: Normal: RUE, LUE, RLE, LLE, Face - Cardiac Rhythm: Regular Murmur: None JVD: No Carotid Bruit: No - Pulmonary Breath Sounds: bilateral Clear Respiratory Effort: Symmetrical Anesthesia Assess/Plan ASA Score: 2 Modified Huntington Scale for Level of Consciousness: Cooperative, oriented, and tranquil Anesthetic Plan: Regional Monitoring Plan: Standard Monitors Recovery Plan: PACU
[2017-11-28] MEDS: *HR* Nalbuphine 20 MG/ML AMPUL IVP PRN (22:10)
[2017-11-29] MEDS: *HR* Nalbuphine 20 MG/ML AMPUL IVP PRN (03:12)
--- NOTE | 2017-11-29 06:06 | OB Labor Progress Note ---
Date of Encounter: 11/29/17 Time of Encounter: 06:04 Labor Progress Note - Subjective Subjective: Pt reports feeling contractions. No significant changes - Vital Signs Vital Signs: BP 117/81 HR 70s - Cervix Cervix: FT/th/-4 - Heart Tones Heart Tones: Baseline 130-135 Moderate variability Accelerations present - [place]: Contractions 1.5-3 - Plan Plan: Continue routine labor management GBS negative Pt may have epidural upon request Nubain for pain as needed per orders Repeat cervidil 10mg vaginally for cervical ripening Consider pitocin vs. oral cytotec after cervidil removed Anticipate vaginal delivery Dr. Wang aware of POC and agrees
[2017-11-29 06:30] LABS: Basophils % 0.3 %; Eosinophils % 0.1 %; Hematocrit 32.5 % (35.3-44.9); Hemoglobin 10.9 g/dL (11.5-15.4); Immature Granulocytes % 0.9 % (0-4); Lymphocytes # 1.6 K/mcL (0.6-4.6); Lymphocytes % 10.5 %; Mean Corpuscular HGB Conc 33.5 g/dL (31.6-35.5); Mean Corpuscular Hemoglobin 30.4 pg (28.0-33.3); Mean Corpuscular Volume 90.5 fL (83.0-100.0); Mean Platelet Volume 10.4 fL (9.4-12.4); Monocytes % 6.5 %; Neutrophils # 12.2 K/mcL (1.6-8.9); Platelet Count 247 K/mcL (140-400); Red Blood Count 3.59 M/mcL (3.82-4.97); Red Cell Distribution Width 13.2 % (11.5-14.5); Segmented Neutrophils % 81.7 %
[2017-11-29 08:07] LABS: Alanine Aminotransferase 9 Units/L (7-52); Aspartate Amino Transferase 14 Units/L (13-39); BUN/Creatinine Ratio 10 (6-26); Blood Urea Nitrogen 8 mg/dL (6-20); Lactate Dehydrogenase 119 Units/L (140-271); Uric Acid 7.1 mg/dL (2.3-7.6); eGFR For African Americans > 60 (> 60); eGFR For Non-African Americans > 60 (> 60)
[2017-11-29] MEDS ORDERED: miSOPROStol 25 MCG TABLET PO PRN (08:15)
--- NOTE | 2017-11-29 11:54 | OB Labor Progress Note ---
Date of Encounter: 11/29/17 Time of Encounter: 11:49 Labor Progress Note - Subjective Subjective: Pt feeling some contractions, - Vital Signs Vital Signs: 120/68 - Cervix Cervix: 1/70/-2 - Heart Tones Heart Tones: 125/moderate/+accels/-decels - Interventions Interventions: Cerivcal hernandez placed - Plan Plan: Cytotec cervical hernandez placed will transition to pitocin after cytotec time.
[2017-11-29] MEDS ORDERED: *HR* Nalbuphine 20 MG/ML AMPUL IVP PRN (12:19)
[2017-11-29] MEDS ORDERED: Oxytocin 20 units/ LR 1000 mL 20 UNIT/1,000 ML BAG IVC SCH (14:15)
[2017-11-29] MEDS ORDERED: Bupivacaine-MPF 0.25% 10 ML VIAL ONE (15:51)
[2017-11-29] MEDS ORDERED: *HR* FentaNYL (PF) 100 MCG/2 ML VIAL ONE (15:52)
[2017-11-29] MEDS ORDERED: Naloxone 0.4 MG/ML INJ IVP PRN (15:54)
[2017-11-29] MEDS ORDERED: Bupivacaine-MPF 0.25% 10 ML VIAL EP ONE (15:54)
[2017-11-29] MEDS ORDERED: EPHEDrine 50 MG/ML VIAL IVP PRN (15:54)
[2017-11-29] MEDS ORDERED: Ondansetron 4 MG/2 ML VIAL IVP PRN (15:54)
[2017-11-29] MEDS ORDERED: *HR* FentaNYL (PF) 100 MCG/2 ML VIAL EP ONE (15:54)
[2017-11-29] MEDS ORDERED: Epidural Premix (fent/bupiv) 110 ML EP ONE ×2 (15:56→21:33)
[2017-11-29] MEDS ORDERED: Epidural Premix (fent/bupiv) 110 ML EP SCH (16:00)
--- NOTE | 2017-11-29 16:30 | Anesthesia Procedures ---
Date of Encounter: 11/29/17 Time of Encounter: 16:00 Procedures: Anesthesia - Epidural/Spinal Patient ID/Chart reviewed: Yes Patient examined: Yes OB Eval: Gestational age: 39 OB Eval: : 1 OB Eval: Hx Para: 0 OB Eval: Dilated at (cm): 4 OB Eval: Contractions: Non-stressed pattern Consent Obtained: Yes Supplemental Oxygen: None/Room Air Site Prep: Aseptic Technique, Sterile prep and drape, Povidone-Iodine 1% Patient position: upright Local Anesthetic: Lidocaine 1% Amount of Local Anesthetic used: 3 Touhy Needle Gauge: 18 Touhy Needle Depth (cm): 6 Catheter Depth at Skin (cm): 15 Test Dose (1.5% Lido + Epi): Volume given (mls): 3 Test Dose Result: Negative Loading Dose: 0.25% Marcaine (mls): 10 Loading Dose: Fentanyl (mcg): 100 Loading Dose Administered: Thru Catheter Infusion Med: 0.125% Bupivacaine w/ 2 mcg/ml Fentanyl Infusion Rate (mls/hr): [address]: Tegaderm, Tape Interspace Used: L4-L5 Loss of Resistance (SCOTTY): Yes Blood: No CSF: No Paresthesia: No Procedure: YIFAN placed 1st pass without any immediate noted complications. VSS and FHT stable throughout. Vitals + FHT's: 1605 BP 137/95 R 18 P 100 1621 BP 122/71 R 16 P 87 FHT 130s
--- NOTE | 2017-11-29 17:37 | OB Labor Progress Note ---
Date of Encounter: 11/29/17 Time of Encounter: 17:34 Labor Progress Note - Subjective Subjective: Comfortable with epidural - Vital Signs Vital Signs: 110/55 - Heart Tones Heart Tones: 140/moderate/+accels/-decels - [place]: 1-2 - Interventions Interventions: Pt was AROMd for meconium stained fluid and IUPC placed at 1506 - Plan Plan: Pitocin per policy until adequate labor. Dr. de guzman updated about POC Anticipate
--- NOTE | 2017-11-29 20:36 | OB Labor Progress Note ---
Date of Encounter: 11/29/17 Time of Encounter: 20:33 Labor Progress Note - Subjective Subjective: Pt comfortable with epidural - Vital Signs Vital Signs: 112/59 - Cervix Cervix: 5-6/90/-1 - Heart Tones Heart Tones: 140/moderate/+accels/-decels - [place]: 1-3 - Interventions Interventions: Repositioned with peanut ball - Plan Plan: Continue pitocin per policy Frequent repositioning with peanut ball Anticipate
--- NOTE | 2017-11-30 02:11 | OB/GYN Procedure Note ---
Delivery - Delivery Date: 11/30/17 Provider: Rukhsana Flannery ([email or web address]) Intrapartum events: meconium Delivery induction: AROM, oxytocin, hernandez, misoprostol, cervidil Delivery monitor: external FHT, external uterine, internal uterine Anesthesia: epidural Estimated Blood Loss: 800 - Repair Episiotomy: none Laceration Description: Perineal - 1st Degree - Complications Delivery complications: meconium Delivery comments: Induction of labor with cervidil, cytotec and pitocin, progressed to complete, Maternal bearing down efforts to of liveborn girl, vertex delivered OA, shoulders and body easily followed, no nuchal cord or shoulder dystocia encountered. placed on maternal abdomen for drying and stimulation, APGARS 8/9. Placenta delivered spontaneously complete upon inspection. Fundas massaged until firm, continued to have small trickle, 800mcg cytotec placed rectally. EBL 800, 1st degree perineal laceration repaired with 3-0 vycril. [place] and mother left bonding stable skin to skin - Disposition Mom disposition: stable in LDR [place] disposition: stable in LDR
[2017-11-30] MEDS ORDERED: Acetaminophen 325 MG TABLET PO ONE (02:37)
[2017-11-30] MEDS ORDERED: Oxytocin 20 units/ LR 1000 mL 20 UNIT/1,000 ML BAG IVC SCH (05:36)
[2017-11-30] MEDS ORDERED: Benzocaine/Menthol 56 GM AEROSOL SPRAY TP PRN (05:36)
[2017-11-30] MEDS ORDERED: Acetaminophen 325 MG TABLET PO PRN (05:36)
[2017-11-30] MEDS ORDERED: Lanolin 7 G OINT...G. TP PRN (05:36)
[2017-11-30] MEDS: Prenatal Vit/FA 1 EACH TABLET PO SCH (09:05)
[2017-11-30] MEDS: Ibuprofen 600 MG TABLET PO PRN (19:42)
[2017-12-01 07:32] LABS: Basophils # 0.1 K/mcL (0.0-0.2); Basophils % 0.4 %; Eosinophils # 0.2 K/mcL (0.0-0.6); Eosinophils % 1.4 %; Hematocrit 25.3 % (35.3-44.9); Immature Granulocytes % 0.9 % (0-4); Lymphocytes % 21.4 %; Mean Corpuscular HGB Conc 33.6 g/dL (31.6-35.5); Mean Corpuscular Volume 92.3 fL (83.0-100.0); Mean Platelet Volume 10.4 fL (9.4-12.4); Monocytes # 0.8 K/mcL (0.0-1.3); Monocytes % 5.8 %; Neutrophils # 9.8 K/mcL (1.6-8.9); Platelet Count 214 K/mcL (140-400); Red Blood Count 2.74 M/mcL (3.82-4.97); Red Cell Distribution Width 13.4 % (11.5-14.5); Segmented Neutrophils % 70.1 %
[2017-12-01 07:43] LABS: Hemoglobin 8.5 g/dL (11.5-15.4)
[2017-12-01 08:36] VITALS: BP 110/76
[2017-12-01] MEDS: Ibuprofen 600 MG TABLET PO PRN (09:31)
[2017-12-01] MEDS: Prenatal Vit/FA 1 EACH TABLET PO SCH (09:32)
--- NOTE | 2017-12-01 09:52 | Discharge Summary ---
Date of Encounter: 12/01/17 Time of Encounter: 09:47 - Discharge Diagnosis (1) Vaginal delivery Priority: Primary Status: Acute Comments: Pt meeting all PP milestones, Passing flatus, tolerates diet, Breast feeding, desires discharge - Discharge Medications Prescriptions: Ibuprofen [Motrin] 600 mg PO Q6HR PRN #60 tablet PRN Reason: Cramping Docusate [Colace] 100 mg PO BID #60 capsule Ferrous Sulfate 325 mg PO BIDWM #60 tablet Home Medications: Multivitamin [Flintstones] 4 each PO DAILY 10/02/17 [History] Acetaminophen [Tylenol] 650 mg PO Q6HR PRN tablet 12/01/17 [Rx] Benzocaine/Menthol [place] [Dermoplast [place]] 1 appl TP QID PRN aerosol 12/01/17 [Rx] Breast Pump [BREAST PUMP] 1 each .ROUTE AD #1 each 12/01/17 [Rx] Docusate [Colace] 100 mg PO BID #60 capsule 12/01/17 [Rx] Ferrous Sulfate 325 mg PO BIDWM #60 tablet 12/01/17 [Rx] Ibuprofen [Motrin] 600 mg PO Q6HR PRN #60 tablet 12/01/17 [Rx] Lanolin [Lansinoh] 1 appl TP QID PRN oint...g. 12/01/17 [Rx] Vit/FA 1 each PO DAILY tablet 12/01/17 [Rx] Allergies/Adverse Reactions: 3 Allergy/AdvReac Type Severity Reaction Status Date / Time No Known Allergies Allergy Verified 11/12/17 22:27 Data Procedures and tests throughout hospitalization: Laboratory Tests 11/28/17 11/28/17 11/28/17 12:55 12:55 12:55 WBC 14.6 H RBC 3.84 Hgb 11.7 Hct 34.8 L MCV 90.6 MCH 30.5 MCHC 33.6 RDW 13.2 Plt Count 263 MPV 10.3 Immature Gran % 1.0 Seg Neutrophils % 80.4 Lymphocytes % 12.1 Monocytes % 5.7 Eosinophils % 0.4 Basophils % 0.4 Neutrophils # 11.7 H Lymphocytes # 1.8 Monocytes # 0.8 Eosinophils # 0.1 Basophils # 0.1 BUN 7 Creatinine 0.79 Est GFR ( Amer) > 60 Est GFR (Non-Af Amer) > 60 BUN/Creatinine Ratio 9 Uric Acid 6.7 AST 15 ALT 9 Lactate Dehydrogenase 129 L Urine Creatinine 89 Protein/Creatinin Ratio 0.15 Urine Total Protein 13 Urine Opiates Screen Negative Ur Barbiturates Screen Negative Ur Phencyclidine Scrn Negative Ur Amphetamines Screen Negative U Benzodiazepines Scrn Negative Urine Cocaine Screen Negative U Marijuana (THC) Screen Negative 11/29/17 11/29/17 12/01/17 06:04 06:04 07:14 WBC 14.9 H 13.9 H RBC 3.59 L 2.74 L Hgb 10.9 L 8.5 L D Hct 32.5 L 25.3 L MCV 90.5 92.3 MCH 30.4 31.0 MCHC 33.5 33.6 RDW 13.2 13.4 Plt Count 247 214 MPV 10.4 10.4 Immature Gran % 0.9 0.9 Seg Neutrophils % 81.7 70.1 Lymphocytes % 10.5 21.4 Monocytes % 6.5 5.8 Eosinophils % 0.1 1.4 Basophils % 0.3 0.4 Neutrophils # 12.2 H 9.8 H Lymphocytes # 1.6 3.0 Monocytes # 1.0 0.8 Eosinophils # 0.0 0.2 Basophils # 0.0 0.1 BUN 8 Creatinine 0.84 Est GFR ( Amer) > 60 Est GFR (Non-Af Amer) > 60 BUN/Creatinine Ratio 10 Uric Acid 7.1 AST 14 ALT 9 Lactate Dehydrogenase 119 L Urine Creatinine Protein/Creatinin Ratio Urine Total Protein Urine Opiates Screen Ur Barbiturates Screen Ur Phencyclidine Scrn Ur Amphetamines Screen U Benzodiazepines Scrn Urine Cocaine Screen U Marijuana (THC) Screen Labs on day of discharge: Labs from last 24 hours 12/01/17 07:14 WBC 13.9 H RBC 2.74 L Hgb 8.5 L D Hct 25.3 L MCV 92.3 MCH 31.0 MCHC 33.6 RDW 13.4 Plt Count 214 MPV 10.4 Immature Gran % 0.9 Seg Neutrophils % 70.1 Lymphocytes % 21.4 Monocytes % 5.8 Eosinophils % 1.4 Basophils % 0.4 Neutrophils # 9.8 H Lymphocytes # 3.0 Monocytes # 0.8 Eosinophils # 0.2 Basophils # 0.1 Date of admission: 11/28/17 12:01 Primary care physician: Yolie Richards CNP Consults: 11/30/17 05:36 Consult to Ambulette Driver [CONS] Routine Comment: Vaginal delivery, consult needed Discharging clinician: Rukhsana Flannery Anticipated date of discharge: 12/01/17 - Patient Status Disposition: Home, Self-Care Condition: Good Functional capacity at discharge: independent ambulation Overall status at discharge: patient is back to baseline - Discharge Instructions Follow Up With: Yolie Richards CNP [Primary Care Provider] - - Diet and Activity Activity: resume usual activities as tolerated Diet: regular diet Hospital Course Reason for admission: induction of labor Delivery: Episiotomy: none Laceration: 1st degree Other procedures: none complications: none Discharge diagnosis: IUP at term delivered baby: female Hospital course: Delivery - Delivery Date: 11/30/17 Provider: Rukhsana Flannery ([email or web address]) Intrapartum events: meconium Delivery induction: AROM, oxytocin, hernandez, misoprostol, cervidil Delivery monitor: external FHT, external uterine, internal uterine Anesthesia: epidural Estimated Blood Loss: 800 - Repair Episiotomy: none Laceration Description: Perineal - 1st Degree - Complications Delivery complications: meconium Delivery comments: Induction of labor with cervidil, cytotec and pitocin, progressed to complete, Maternal bearing down efforts to of liveborn girl, vertex delivered OA, shoulders and body easily followed, no nuchal cord or shoulder dystocia encountered. Infant placed on maternal abdomen for drying and stimulation, APGARS 8/9. Placenta delivered spontaneously complete upon inspection. Fundas massaged until firm, continued to have small trickle, 800mcg cytotec placed rectally. EBL 800, 1st degree perineal laceration repaired with 3-0 vycril. and mother left bonding stable skin to skin - Disposition Mom disposition: stable in PP and appropriate for discharge. Time Attestation: Total time spent providing and/or coordinating discharge services: Time Spent: Less than 30 minutes Exam - Constitutional Vitals: Temp Pulse Resp BP Pulse Ox 97.9 F 84 12 110/76 97 12/01/17 08:35 12/01/17 08:35 12/01/17 08:35 12/01/17 08:35 12/01/17 08:35 General appearance IM: A&O X 3 - Respiratory Respiratory exam: Present: CTAB - Cardiovascular Cardiovascular exam IM: Present: RRR - GI/Abdominal GI/Abdominal exam IM: normal bowel sounds, soft - Uterine Tone: Firm Uterus Position: At Umbilicus - Neurological Exam Neurological exam: normal gait, oriented X3 - Psychiatric Additional comments: Reports good mood.
[2017-12-01] MEDS ORDERED: miSOPROStol 100 MCG TABLET PO ONE (11:26)
== END 2017-12-01 11:27 | disposition home or self-care (01) | DRG 560 ==
LOC: 1NENULAB → OBSVTOIN 12:01 → 1NENUOBS 11-30 04:58
PROVIDERS: ADMIT Obstetrics & Gynecology; ATTEND Obstetrics & Gynecology

== ENCOUNTER → 2020-09-29 19:29 | Observation (INO) ==
[2020-09-29 17:40] LABS: Bacteria,Urine Moderate per hpf (None-Few); Bilirubin,Urine Negative (Negative); Blood,Urine Negative (Negative); Clarity,Urine Turbid (Clear); Color,Urine Light-Yellow (Yellow); Glucose,Urine (UA) Normal (Normal); Ketones,Urine Negative (Negative); Leukocyte Esterase,Urine Small (Negative); Mucus,Urine Few per lpf (None-Few); Nitrite,Urine Positive (Negative); PH,Urine 6.5 pH Units (5.0-8.0); Protein,Urine Negative (Neg-Trace); RBC,Urine 0-3 per hpf (0-3); Specific Gravity,Urine 1.011 (1.010-1.025); Squamous Epithelial Cell,Urine Few per hpf (None-Few); Urobilinogen,Urine Normal (Normal)
[2020-09-29 19:10] LABS: Candida DNA Not Detected (Not Detect); Gardnerella DNA Not Detected (Not Detect); Trichomonas DNA Not Detected (Not Detect)
[~2020-09-29 19:29] MED LIST changes: -*HR* Nalbuphine 20 MG/ML AMPUL IVP PRN; +Ringers Solution, Lactated 1,000 ML IVC ONE; -Ringers Solution, Lactated 1,000 ML IVC SCH; -Ringers Solution, Lactated 1,000 ML ONE; +cefTRIAXone 2,000 MG in Water for inj. (sterile) 20 ML IVP ONE
== END | disposition home or self-care (01) ==
LOC: 1NENULAB
PROVIDERS: ADMIT Obstetrics & Gynecology; ATTEND Obstetrics & Gynecology

== ENCOUNTER → 2020-10-25 23:05 | Observation (INO) ==
[2020-10-25 23:02] LABS: Bacteria,Urine Few per hpf (None-Few); Bilirubin,Urine Negative (Negative); Blood,Urine Negative (Negative); Clarity,Urine Clear (Clear); Color,Urine Light-Yellow (Yellow); Glucose,Urine (UA) Normal (Normal); Ketones,Urine Negative (Negative); Leukocyte Esterase,Urine Small (Negative); Mucus,Urine Few per lpf (None-Few); Nitrite,Urine Negative (Negative); PH,Urine 6.5 pH Units (5.0-8.0); Protein,Urine Negative (Neg-Trace); RBC,Urine 0-3 per hpf (0-3); Specific Gravity,Urine 1.012 (1.010-1.025); Squamous Epithelial Cell,Urine Few per hpf (None-Few); Urobilinogen,Urine Normal (Normal)
== END | disposition home or self-care (01) ==
LOC: 1NENULAB
PROVIDERS: ADMIT Obstetrics & Gynecology; ATTEND Obstetrics & Gynecology

== ENCOUNTER 2020-11-08 18:24 | Observation (INO) | END 2020-11-08 19:50 | disposition home or self-care (01) | LOC: 1NENULAB | PROVIDERS: ADMIT Obstetrics & Gynecology; ATTEND Obstetrics & Gynecology ==

== ENCOUNTER → 2020-11-11 14:03 | Observation (INO) ==
[2020-11-11 12:37] LABS: Basophils % 0.3 %; Eosinophils # 0.1 K/mcL (0.0-0.6); Eosinophils % 0.5 %; Hematocrit 34.8 % (35.3-44.9); Hemoglobin 11.4 g/dL (11.5-15.4); Immature Granulocytes % 0.7 % (0-4); Lymphocytes # 1.4 K/mcL (0.6-4.6); Lymphocytes % 12.4 %; Mean Corpuscular HGB Conc 32.8 g/dL (31.6-35.5); Mean Corpuscular Hemoglobin 30.6 pg (28.0-33.3); Mean Corpuscular Volume 93.3 fL (83.0-100.0); Mean Platelet Volume 10.5 fL (9.4-12.4); Monocytes # 0.4 K/mcL (0.0-1.3); Monocytes % 3.7 %; Platelet Count 243 K/mcL (140-400); Red Blood Count 3.73 M/mcL (3.82-4.97); Red Cell Distribution Width 13.2 % (11.5-14.5); Segmented Neutrophils % 82.4 %
[2020-11-11 12:45] LABS: Protein/Creatinine Ratio,Urine 0.21 mg/mg (0.00-0.20)
[2020-11-11 13:19] LABS: Alanine Aminotransferase 7 Units/L (7-52); Aspartate Amino Transferase 13 Units/L (13-39); BUN/Creatinine Ratio 10 (6-26); Blood Urea Nitrogen 7 mg/dL (6-20); Lactate Dehydrogenase 133 Units/L (140-271); Uric Acid 5.5 mg/dL (2.3-7.6); eGFR For African Americans > 60 (> 60); eGFR For Non-African Americans > 60 (> 60)
== END | disposition home or self-care (01) ==
LOC: 1NENULAB
PROVIDERS: ADMIT Student in an Organized Health Care Education/Training Program; ATTEND Student in an Organized Health Care Education/Training Program

== ENCOUNTER 2020-11-12 20:43 | Inpatient (IN) ==
[~2020-11-12 20:43] MED LIST changes: +*HR* FentaNYL (PF) 100 MCG/2 ML VIAL IVP PRN; +Azithromycin 500 MG in 0.9 % Sodium Chloride 250 ML IVPB ONE; +EPHEDrine 50 MG/ML VIAL IVP PRN; +Famotidine 20 MG/2 ML VIAL IVP PRN; +Lidocaine 1% 20 ML MDV INFILT PRN; +Metoclopramide 10 MG/2 ML VIAL IVP PRN; +Naloxone 0.4 MG/ML INJ IVP PRN; +Ondansetron 4 MG/2 ML VIAL IVP PRN; -Ringers Solution, Lactated 1,000 ML IVC ONE; -cefTRIAXone 2,000 MG in Water for inj. (sterile) 20 ML IVP ONE
[2020-11-12 20:59] LABS: Basophils % 0.3 %; Eosinophils # 0.1 K/mcL (0.0-0.6); Eosinophils % 0.6 %; Hemoglobin 11.1 g/dL (11.5-15.4); Immature Granulocytes % 0.8 % (0-4); Lymphocytes # 1.7 K/mcL (0.6-4.6); Lymphocytes % 15.6 %; Mean Corpuscular HGB Conc 33.6 g/dL (31.6-35.5); Mean Corpuscular Hemoglobin 30.9 pg (28.0-33.3); Mean Corpuscular Volume 91.9 fL (83.0-100.0); Mean Platelet Volume 10.4 fL (9.4-12.4); Monocytes # 0.7 K/mcL (0.0-1.3); Monocytes % 6.6 %; Neutrophils # 8.2 K/mcL (1.6-8.9); Platelet Count 249 K/mcL (140-400); Red Blood Count 3.59 M/mcL (3.82-4.97); Red Cell Distribution Width 13.1 % (11.5-14.5); Segmented Neutrophils % 76.1 %; White Blood Count 10.8 K/mcL (4.3-11.1)
[2020-11-12 21:08] LABS: Amphetamine Screen,Urine Negative ng/mL (Cutoff=1000); Barbiturate Screen,Urine Negative ng/mL (Cutoff=200); Benzodiazepines Screen,Urine Negative ng/mL (Cutoff=200); Cannabinoid Screen,Urine Negative ng/mL (Cutoff = 50); Cocaine Screen,Urine Negative ng/mL (Cutoff= 300); Opiate Screen,Urine Negative ng/mL (Cutoff=300); Phencyclidine Screen,Urine Negative ng/mL (Cutoff=25)
[2020-11-12 21:18] LABS: Alanine Aminotransferase 8 Units/L (7-52); Aspartate Amino Transferase 13 Units/L (13-39); BUN/Creatinine Ratio 10 (6-26); Blood Urea Nitrogen 8 mg/dL (6-20); Lactate Dehydrogenase 132 Units/L (140-271); eGFR For African Americans > 60 (> 60); eGFR For Non-African Americans > 60 (> 60)
[2020-11-12] MEDS ORDERED: miSOPROStoL 25 MCG TABLET PO SCH (21:28)
[2020-11-12] MEDS: Ringers Solution, Lactated 1,000 ML IVC SCH (21:41)
[2020-11-13 00:52] LABS: Creatinine,Urine 48 mg/dL; Protein/Creatinine Ratio,Urine 0.17 mg/mg (0.00-0.20)
[2020-11-13] MEDS ORDERED: Oxytocin 20 units/ LR 1000 mL 20 UNIT/1,000 ML BAG IVC SCH ×2 (03:45→14:09)
[2020-11-13] MEDS: Epidural Premix (fent/bupiv) 110 ML EP SCH ×2 (06:57→12:40)
[2020-11-13] MEDS: Ringers Solution, Lactated 1,000 ML IVC SCH (07:46)
[2020-11-13] MEDS ORDERED: miSOPROStoL 25 MCG TABLET PO SCH (08:00)
[2020-11-13] MEDS ORDERED: Lanolin 7 G OINT...G. TP PRN (14:09)
[2020-11-13] MEDS ORDERED: Benzocaine/Menthol 56 GM AEROSOL SPRAY TP PRN (14:09)
[2020-11-13] MEDS: Acetaminophen 325 MG TABLET PO PRN (15:51)
[2020-11-13] MEDS: Ibuprofen 600 MG TABLET PO PRN (16:20)
[2020-11-14] MEDS: Ibuprofen 600 MG TABLET PO PRN ×2 (07:18→13:53)
[2020-11-14] MEDS: Acetaminophen 325 MG TABLET PO PRN ×2 (07:19→13:53)
[2020-11-14 07:46] LABS: Basophils # 0.1 K/mcL (0.0-0.2); Basophils % 0.3 %; Eosinophils % 0.2 %; Hematocrit 33.5 % (35.3-44.9); Hemoglobin 11.3 g/dL (11.5-15.4); Immature Granulocytes % 0.6 % (0-4); Lymphocytes # 1.2 K/mcL (0.6-4.6); Lymphocytes % 6.4 %; Mean Corpuscular HGB Conc 33.7 g/dL (31.6-35.5); Mean Corpuscular Hemoglobin 30.9 pg (28.0-33.3); Mean Corpuscular Volume 91.5 fL (83.0-100.0); Mean Platelet Volume 10.4 fL (9.4-12.4); Monocytes # 0.9 K/mcL (0.0-1.3); Monocytes % 4.7 %; Neutrophils # 16.2 K/mcL (1.6-8.9); Platelet Count 227 K/mcL (140-400); Red Blood Count 3.66 M/mcL (3.82-4.97); Red Cell Distribution Width 13.2 % (11.5-14.5); Segmented Neutrophils % 87.8 %
[2020-11-14 07:47] LABS: White Blood Count 18.5 K/mcL (4.3-11.1)
[2020-11-14] MEDS ORDERED: Prenatal Vit/FA 1 EACH TABLET PO SCH (09:00)
[2020-11-14 10:36] LABS: Influenza A PCR Negative (Negative); Influenza B PCR Negative (Negative); Resp. Syncytial Virus PCR Negative (Negative)
[2020-11-14 10:41] LABS: SARS-CoV-2 by PCR (In House) Negative (Negative)
[2020-11-14] MEDS ORDERED: Ringers Solution, Lactated 500 ML IVC ONE (14:52)
[2020-11-14 15:53] LABS: Basophils % 0.1 %; Hematocrit 31.6 % (35.3-44.9); Hemoglobin 10.7 g/dL (11.5-15.4); Immature Granulocytes % 0.7 % (0-4); Lymphocytes # 0.8 K/mcL (0.6-4.6); Lymphocytes % 3.7 %; Mean Corpuscular HGB Conc 33.9 g/dL (31.6-35.5); Mean Corpuscular Hemoglobin 31.2 pg (28.0-33.3); Mean Corpuscular Volume 92.1 fL (83.0-100.0); Mean Platelet Volume 10.4 fL (9.4-12.4); Monocytes # 1.4 K/mcL (0.0-1.3); Monocytes % 6.4 %; Neutrophils # 18.7 K/mcL (1.6-8.9); Platelet Count 224 K/mcL (140-400); Red Blood Count 3.43 M/mcL (3.82-4.97); Red Cell Distribution Width 13.2 % (11.5-14.5); Segmented Neutrophils % 89.1 %
[2020-11-14 16:13] LABS: Alanine Aminotransferase 10 Units/L (7-52); Albumin 3.1 g/dL (3.5-5.7); Albumin/Globulin Ratio 1.1 (1.1-2.2); Alkaline Phosphatase 77 Units/L (34-104); Aspartate Amino Transferase 15 Units/L (13-39); BUN/Creatinine Ratio 11 (6-26); Bilirubin,Total 0.4 mg/dL (0.3-1.0); Blood Urea Nitrogen 8 mg/dL (6-20); Calcium 8.6 mg/dL (8.6-10.3); Carbon Dioxide 19 mEq/L (23-29); Chloride 107 mEq/L (98-107); Globulin 2.7 g/dL (2.4-3.5); Glucose 102 mg/dL (70-105); Osmolality,Calculated 279 (280-300); Potassium 3.6 mEq/L (3.5-5.1); Sodium 135 mEq/L (136-145); Total Protein 5.8 g/dL (6.4-8.9); eGFR For African Americans > 60 (> 60); eGFR For Non-African Americans > 60 (> 60)
[2020-11-14 17:52] VITALS: BP 112/70
== END 2020-11-14 19:07 | disposition left against medical advice (07) | DRG 807 ==
LOC: 1NENULAB → 1NENUOBS 11-13 15:41
PROVIDERS: ADMIT Student in an Organized Health Care Education/Training Program; ATTEND Student in an Organized Health Care Education/Training Program

== ENCOUNTER → 2022-07-24 14:35 | Observation (INO) ==
[2022-07-24 12:36] LABS: Bacteria,Urine Few per hpf (None-Few); Bilirubin,Urine Negative (Negative); Blood,Urine Negative (Negative); Clarity,Urine Clear (Clear); Color,Urine Colorless (Yellow); Glucose,Urine (UA) Normal (Normal); Ketones,Urine Negative (Negative); Leukocyte Esterase,Urine Moderate (Negative); Mucus,Urine Few per lpf (None-Few); Nitrite,Urine Negative (Negative); Protein,Urine Negative (Neg-Trace); RBC,Urine 0-3 per hpf (0-3); Specific Gravity,Urine 1.006 (1.010-1.025); Squamous Epithelial Cell,Urine Few per hpf (None-Few); Transitional Epi Cells,Urine Few per hpf (None-Few); Urobilinogen,Urine Normal (Normal); WBC,Urine 15-30 per hpf (0-3)
[2022-07-24 14:32] LABS: Adenovirus Not Detected (Not Detect); Bordetella Pertussis Not Detected (Not Detect); Chlamydophila pneumoniae Not Detected (Not Detect); Coronavirus 229E Not Detected (Not Detect); Coronavirus HKU1 Not Detected (Not Detect); Coronavirus NL63 Not Detected (Not Detect); Coronavirus OC43 Not Detected (Not Detect); Human Metapneumovirus Not Detected (Not Detect); Human Rhinovirus/Enterovirus Not Detected (Not Detect); Influenza A Subtype 2009 H1 Not Detected (Not Detect); Influenza B Not Detected (Not Detect); Mycoplasma pneumoniae Not Detected (Not Detect); Parainfluenza Virus 1 DETECTED (Not Detect); Parainfluenza Virus 2 Not Detected (Not Detect); Parainfluenza Virus 3 Not Detected (Not Detect); Parainfluenza Virus 4 Not Detected (Not Detect); Respiratory Syncytial Virus Not Detected (Not Detect); SARS-CoV-2 Not Detected (Not Detect)
[~2022-07-24 14:35] MED LIST changes: -*HR* FentaNYL (PF) 100 MCG/2 ML VIAL IVP PRN; -Azithromycin 500 MG in 0.9 % Sodium Chloride 250 ML IVPB ONE; -EPHEDrine 50 MG/ML VIAL IVP PRN; -Famotidine 20 MG/2 ML VIAL IVP PRN; -Lidocaine 1% 20 ML MDV INFILT PRN; +Metoclopramide 10 MG/2 ML VIAL IVP ONE; -Metoclopramide 10 MG/2 ML VIAL IVP PRN; -Naloxone 0.4 MG/ML INJ IVP PRN; -Ondansetron 4 MG/2 ML VIAL IVP PRN; +Ringer's Solution, Lactated 250 ML IV.SOLN IVC ONE; +Ringers Solution, Lactated 1,000 ML IVC ONE; +Ringers Solution, Lactated 1,000 ML ONE
== END | disposition home or self-care (01) ==
LOC: 1NENULAB
PROVIDERS: ADMIT Student in an Organized Health Care Education/Training Program; ATTEND Student in an Organized Health Care Education/Training Program

== ENCOUNTER → 2022-08-03 20:40 | Observation (INO) ==
[2022-08-03 20:45] LABS: Bacteria,Urine Few per hpf (None-Few); Bilirubin,Urine Negative (Negative); Blood,Urine Negative (Negative); Clarity,Urine Turbid (Clear); Color,Urine Light-Yellow (Yellow); Glucose,Urine (UA) Normal (Normal); Ketones,Urine Negative (Negative); Leukocyte Esterase,Urine Small (Negative); Mucus,Urine Few per lpf (None-Few); Nitrite,Urine Negative (Negative); Protein,Urine Negative (Neg-Trace); RBC,Urine 0-3 per hpf (0-3); Specific Gravity,Urine 1.007 (1.010-1.025); Squamous Epithelial Cell,Urine Few per hpf (None-Few); Urobilinogen,Urine Normal (Normal)
== END | disposition home or self-care (01) ==
LOC: 1NENULAB
PROVIDERS: ADMIT Obstetrics & Gynecology; ATTEND Obstetrics & Gynecology

== ENCOUNTER → 2022-08-06 16:11 | Observation (INO) ==
[2022-08-06 15:26] LABS: Bacteria,Urine Few per hpf (None-Few); Bilirubin,Urine Negative (Negative); Blood,Urine Negative (Negative); Clarity,Urine Clear (Clear); Color,Urine Light-Yellow (Yellow); Glucose,Urine (UA) Normal (Normal); Ketones,Urine Negative (Negative); Leukocyte Esterase,Urine Small (Negative); Mucus,Urine Few per lpf (None-Few); Nitrite,Urine Negative (Negative); Protein,Urine Negative (Neg-Trace); RBC,Urine 0-3 per hpf (0-3); Specific Gravity,Urine 1.009 (1.010-1.025); Squamous Epithelial Cell,Urine Few per hpf (None-Few); Urobilinogen,Urine Normal (Normal)
== END | disposition home or self-care (01) ==
LOC: 1NENULAB
PROVIDERS: ADMIT Advanced Practice Midwife; ATTEND Advanced Practice Midwife

== ENCOUNTER 2022-08-13 22:28 | Inpatient (IN) ==
[2022-08-13 17:10] LABS: Basophils % 0.3 %; Eosinophils # 0.1 K/mcL (0.0-0.6); Eosinophils % 0.9 %; Hematocrit 31.7 % (35.3-44.9); Hemoglobin 10.5 g/dL (11.5-15.4); Immature Granulocytes % 1.7 % (0-4); Lymphocytes # 1.5 K/mcL (0.6-4.6); Lymphocytes % 14.3 %; Mean Corpuscular HGB Conc 33.1 g/dL (31.6-35.5); Mean Corpuscular Hemoglobin 30.5 pg (28.0-33.3); Mean Corpuscular Volume 92.2 fL (83.0-100.0); Mean Platelet Volume 10.3 fL (9.4-12.4); Monocytes # 0.6 K/mcL (0.0-1.3); Monocytes % 5.7 %; Platelet Count 230 K/mcL (140-400); Red Blood Count 3.44 M/mcL (3.82-4.97); Red Cell Distribution Width 13.8 % (11.5-14.5); Segmented Neutrophils % 77.1 %; White Blood Count 10.3 K/mcL (4.3-11.1)
[~2022-08-13 22:28] MED LIST changes: +Azithromycin 500 MG in 0.9 % Sodium Chloride 250 ML IVPB PRN; +Famotidine 20 MG/2 ML VIAL IVP PRN; +Lidocaine 1% 20 ML MDV INFILT PRN; -Metoclopramide 10 MG/2 ML VIAL IVP ONE; +Metoclopramide 10 MG/2 ML VIAL IVP PRN; +Naloxone 0.4 MG/ML INJ IVP PRN; +Ondansetron 4 MG/2 ML VIAL IVP PRN; +Oxytocin 30 UNIT/503 ML BAG IVC SCH; -Ringer's Solution, Lactated 250 ML IV.SOLN IVC ONE; -Ringers Solution, Lactated 1,000 ML IVC ONE; -Ringers Solution, Lactated 1,000 ML ONE
[2022-08-13] MEDS ORDERED: *HR* Nalbuphine 10 MG/ML AMPUL IV PRN (22:39)
[2022-08-13] MEDS ORDERED: Ropivacaine/PF 0.2% 20 ML VIAL EP ONE (23:43)
[2022-08-13] MEDS ORDERED: *HR* FentaNYL (PF) 100 MCG/2 ML VIAL EP ONE (23:43)
[2022-08-13] MEDS ORDERED: EPHEDrine sulfate 50 MG/10 ML VIAL IVP PRN (23:43)
[2022-08-13] MEDS ORDERED: Epidural Premix (fent/bupiv) 110 ML EP SCH (23:45)
[2022-08-14] MEDS: Ringers Solution, Lactated 1,000 ML IVC SCH ×2 (00:15→07:39)
[2022-08-14 10:49] LABS: Amphetamine Screen,Urine Negative ng/mL (Cutoff=1000); Barbiturate Screen,Urine Negative ng/mL (Cutoff=200); Benzodiazepines Screen,Urine Negative ng/mL (Cutoff=200); Cannabinoid Screen,Urine Negative ng/mL (Cutoff = 50); Cocaine Screen,Urine Negative ng/mL (Cutoff= 300); Opiate Screen,Urine Negative ng/mL (Cutoff=300); Phencyclidine Screen,Urine Negative ng/mL (Cutoff=25)
[2022-08-14] MEDS ORDERED: Benzocaine/Menthol 56 GM AEROSOL SPRAY TP PRN (12:01)
[2022-08-14] MEDS ORDERED: Lanolin 7 G OINT...G. TP PRN (12:01)
[2022-08-14] MEDS ORDERED: OXYTOCIN/RINGERS LACTATE 10 UNIT/166.6 ML BAG IVC ONE (12:01)
[2022-08-14] MEDS ORDERED: Oxytocin 30 UNIT/503 ML BAG IVC SCH (12:01)
[2022-08-14] MEDS ORDERED: Ondansetron ODT 4 MG TAB.RAPDIS SL PRN (12:01)
[2022-08-14] MEDS: Ibuprofen 600 MG TABLET PO SCH ×2 (12:12→19:50)
[2022-08-14] MEDS: Acetaminophen 325 MG TABLET PO SCH ×2 (12:12→19:51)
[2022-08-15 02:25] VITALS: TEMP 98.1
[2022-08-15] MEDS: Acetaminophen 325 MG TABLET PO SCH (05:00)
[2022-08-15] MEDS: Ibuprofen 600 MG TABLET PO SCH (05:01)
[2022-08-15 07:30] VITALS: BP 96/59; PULSE 73; O2SAT 95
[2022-08-15] MEDS ORDERED: Prenatal Vit/FA 1 EACH TABLET PO SCH (09:00)
== END 2022-08-15 12:44 | disposition home or self-care (01) | DRG 807 ==
LOC: 1NENULAB → 1NENUOBS 08-14 11:58
PROVIDERS: ADMIT Obstetrics & Gynecology; ATTEND Obstetrics & Gynecology